=== PATIENT | male | born 1970 | race Caucasian/White ===

== ENCOUNTER → 2016-12-29 | Outpatient (CLI) | payer OTHER | DX: R07.9 Chest pain, unspecified (principal); R07.1 Chest pain on breathing; R05 Cough | CPT/HCPCS: 71101 ==

== ENCOUNTER 2021-04-30 20:56 | Emergency (ER) | payer BC ==
[2021-04-30 22:24] LABS: HEMOGLOBIN 17.2 gm/dl (14.0-17.5); RED BLOOD COUNT 4.92 M/UL (4.20-5.50); WHITE BLOOD COUNT 4.8 K/UL (4.5-11.0)
[2021-04-30] MEDS ORDERED: ATROVENT-HFA12.9 GM INH (23:13)
[2021-04-30] MEDS ORDERED: ZITHROMAX250 MG PO (23:13)
== END 2021-04-30 23:30 | disposition home or self-care (01) ==
LOC: ER1 20:56
PROVIDERS: Physician Assistant Medical
DX: U07.1 COVID-19 (principal); I10 Essential (primary) hypertension; F17.210 Nicotine dependence, cigarettes, uncomplicated
CPT/HCPCS: 71046; 80053; 83605; 85025; 87040; 93005; 99285; U0002

== ENCOUNTER → 2021-04-30 | Outpatient (CLI) | payer BC ==
[~2021-04-30] MED LIST: ATROVENT-HFA12.9 GM INH; COREG 25MG TAB25 MG PO; FENOFIBRATE145 MG PO; HYDROCHLOROTHIA25 MG PO; NORVASC10 MG PO; VITAMIN C500 M4 PO; ZINC30 M1 PO; ZITHROMAX250 MG PO
== END ==
LOC: KOH-I 13:33
DX: R06.00 Dyspnea, unspecified (principal)
CPT/HCPCS: 71046

== ENCOUNTER 2021-05-05 12:45 | Emergency (ER) | payer BC ==
[~2021-05-05] VITALS: Ht 185.4 cm; Wt 131.5 kg
[~2021-05-05 12:45] MED LIST changes: -COREG 25MG TAB25 MG PO; -FENOFIBRATE145 MG PO; -HYDROCHLOROTHIA25 MG PO; -NORVASC10 MG PO; -VITAMIN C500 M4 PO; -ZINC30 M1 PO
[2021-05-05 13:47] LABS: RED BLOOD COUNT 4.88 M/UL (4.20-5.50); WHITE BLOOD COUNT 5.6 K/UL (4.5-11.0)
[2021-05-06] MEDS ORDERED: COREG 25MG TAB25 MG PO (10:22)
[2021-05-06] MEDS ORDERED: NORVASC10 MG PO (10:24)
[2021-05-06] MEDS ORDERED: FENOFIBRATE145 MG PO (10:24)
[2021-05-06] MEDS ORDERED: ZINC30 M1 PO (10:25)
[2021-05-06] MEDS ORDERED: VITAMIN C500 M4 PO (10:26)
[2021-05-06] MEDS ORDERED: HYDROCHLOROTHIA25 MG PO (10:35)
== END 2021-05-05 17:24 | disposition home or self-care (01) ==
LOC: ER1 12:45
PROVIDERS: Physician Assistant Medical
DX: Z23 Encounter for immunization (principal); U07.1 COVID-19; E86.0 Dehydration; I10 Essential (primary) hypertension
CPT/HCPCS: 71045; 80053; 82550; 82553; 83874; 84484; 85025; 85379; Q9967

== ENCOUNTER 2021-05-05 18:02 | Inpatient (IN) | payer BC ==
[~2021-05-05] VITALS: Ht 188 cm; Wt 127.0 kg
[2021-05-06 01:12] LABS: HEMOGLOBIN 16.5 gm/dl (14.0-17.5); RED BLOOD COUNT 4.74 M/UL (4.20-5.50)
[2021-05-06 01:16] LABS: WHITE BLOOD COUNT 8.1 K/UL (4.5-11.0)
[2021-05-06] MEDS ORDERED: COREG 25MG TAB25 MG PO (10:22)
[2021-05-06] MEDS ORDERED: FENOFIBRATE145 MG PO (10:24)
[2021-05-06] MEDS ORDERED: NORVASC10 MG PO (10:24)
[2021-05-06] MEDS ORDERED: ZINC30 M1 PO (10:25)
[2021-05-06] MEDS ORDERED: VITAMIN C500 M4 PO (10:26)
[2021-05-06] MEDS ORDERED: HYDROCHLOROTHIA25 MG PO (10:35)
[2021-05-07 02:45] LABS: RED BLOOD COUNT 4.68 M/UL (4.20-5.50)
[2021-05-07 03:14] LABS: BUN/CREATININE RATIO 13 (0-10)
[2021-05-08 04:05] LABS: HEMOGLOBIN 15.9 gm/dl (14.0-17.5); RED BLOOD COUNT 4.61 M/UL (4.20-5.50)
[2021-05-08 04:27] LABS: WHITE BLOOD COUNT 10.5 K/UL (4.5-11.0)
[2021-05-08 05:29] LABS: BUN/CREATININE RATIO 17 (0-10)
[2021-05-09 03:39] LABS: HEMOGLOBIN 15.2 gm/dl (14.0-17.5); RED BLOOD COUNT 4.64 M/UL (4.20-5.50); WHITE BLOOD COUNT 8.9 K/UL (4.5-11.0)
[2021-05-09 04:06] LABS: BUN/CREATININE RATIO 16 (0-10)
[2021-05-10 08:31] LABS: HEMOGLOBIN 16.2 gm/dl (14.0-17.5); RED BLOOD COUNT 4.78 M/UL (4.20-5.50)
[2021-05-10 08:34] LABS: WHITE BLOOD COUNT 11.9 K/UL (4.5-11.0)
[2021-05-10 09:15] LABS: BUN/CREATININE RATIO 16 (0-10)
[2021-05-11 03:51] LABS: HEMOGLOBIN 15.6 gm/dl (14.0-17.5); RED BLOOD COUNT 4.56 M/UL (4.20-5.50)
[2021-05-11 03:55] LABS: WHITE BLOOD COUNT 15.9 K/UL (4.5-11.0)
[2021-05-11 04:20] LABS: BUN/CREATININE RATIO 20 (0-10)
--- NOTE | 2021-05-11 19:08 | NUR ---
PT UNABLE TO VOID SINCE 0700 AM. ASKED MUTIPLE TIME BUT HE SAID HE DID NOT FEEL THE URGE TO GO. MD NOTIFIED. BLADDER SCANNED. SCAN SHOWED 967ML URINE. 16 FR PEREZ ANCHORED 1400 ML JOSE FRANCISCO URINE VOIDED.
[2021-05-13 04:02] LABS: WHITE BLOOD COUNT 19.5 K/UL (4.5-11.0)
[2021-05-13 04:04] LABS: HEMOGLOBIN 9.8 gm/dl (14.0-17.5); RED BLOOD COUNT 2.89 M/UL (4.20-5.50)
[2021-05-13 04:30] LABS: BUN/CREATININE RATIO 25 (0-10)
[2021-05-14 02:52] LABS: HEMOGLOBIN 9.7 gm/dl (14.0-17.5); RED BLOOD COUNT 2.82 M/UL (4.20-5.50); WHITE BLOOD COUNT 20.6 K/UL (4.5-11.0)
[2021-05-14 03:20] LABS: BUN/CREATININE RATIO 21 (0-10)
[2021-05-15 02:43] LABS: HEMOGLOBIN 9.5 gm/dl (14.0-17.5); RED BLOOD COUNT 2.83 M/UL (4.20-5.50); WHITE BLOOD COUNT 24.4 K/UL (4.5-11.0)
[2021-05-15 03:18] LABS: BUN/CREATININE RATIO 23 (0-10)
--- NOTE | 2021-05-15 10:03 | NUR ---
PATIENTS ROOM AIR SATURATION IS 88%.
== END 2021-05-15 16:43 | disposition home or self-care (01) | DRG 177 ==
LOC: ER1 18:02 → CDU 20:15 → MED SURG 4 20:15 → PROG CARE 20:15 → CCU 20:15 → MED SURG 4 05-06 07:23 → CCU 05-08 15:10 → PROG CARE 05-13 15:39
PROVIDERS: Internal Medicine; Internal Medicine Pulmonary Disease; ADMIT Internal Medicine
PROC: XW033E5 Introduction of Remdesivir Anti-infective into Peripheral Vein, Percutaneous Approach, New Technology Group 5 (ICD-10-PCS; principal; 2021-05-05)
PROC: 3E0333Z Introduction of Anti-inflammatory into Peripheral Vein, Percutaneous Approach (ICD-10-PCS; 2021-05-05)
PROC: 8E0ZXY6 Isolation (ICD-10-PCS; 2021-05-06)
PROC: 5A0945A Assistance with Respiratory Ventilation, 24-96 Consecutive Hours, High Flow/Velocity Cannula (ICD-10-PCS; 2021-05-07)
PROC: XW13325 Transfusion of Convalescent Plasma (Nonautologous) into Peripheral Vein, Percutaneous Approach, New Technology Group 5 (ICD-10-PCS; 2021-05-07)
DX: U07.1 COVID-19 (principal); J12.82 Pneumonia due to coronavirus disease 2019; J80 Acute respiratory distress syndrome; N17.9 Acute kidney failure, unspecified; E83.39 Other disorders of phosphorus metabolism; E87.6 Hypokalemia; I10 Essential (primary) hypertension; E78.5 Hyperlipidemia, unspecified; E66.9 Obesity, unspecified; F17.210 Nicotine dependence, cigarettes, uncomplicated; R79.89 Other specified abnormal findings of blood chemistry; D64.9 Anemia, unspecified; M79.81 Nontraumatic hematoma of soft tissue; T45.515A Adverse effect of anticoagulants, initial encounter; Z96.651 Presence of right artificial knee joint; F10.10 Alcohol abuse, uncomplicated; Z83.3 Family history of diabetes mellitus; Z68.35 Body mass index [BMI] 35.0-35.9, adult
CPT/HCPCS: 36415; 36600; 71045; 80048; 80053; 80061; 82550; 82553; 82728; 82803; 83036; 83605; 83615; 83735; 83874; 83880; 84100; 84484; 85025; 85027; 85379; 86140; 86900; 86901; 86927; 87040; 93005; 94640; 94660; 94664; 94760; 96374; 99284; 99285; C9113; J1100; J1205; J1650; J2270; J7030; J7040; J7050; M0243; Q9967

== ENCOUNTER 2021-05-15 19:51 | Emergency (ER) | payer BC ==
[~2021-05-15 19:51] MED LIST changes: +COREG 25MG TAB25 MG PO; +FENOFIBRATE145 MG PO; +HYDROCHLOROTHIA25 MG PO; +NORVASC10 MG PO; +VITAMIN C500 M4 PO; +ZINC30 M1 PO
[2021-05-15 20:47] LABS: HEMOGLOBIN 11.3 gm/dl (14.0-17.5)
[2021-05-15 20:49] LABS: BUN/CREATININE RATIO 22 (0-10)
[2021-05-15 21:13] LABS: RED BLOOD COUNT 3.32 M/UL (4.20-5.50); WHITE BLOOD COUNT 35.1 K/UL (4.5-11.0)
== END 2021-05-16 03:00 | disposition home or self-care (01) ==
LOC: ER1 19:51
PROVIDERS: Emergency Medicine
DX: U07.1 COVID-19 (principal); J12.82 Pneumonia due to coronavirus disease 2019; I26.99 Other pulmonary embolism without acute cor pulmonale; J96.91 Respiratory failure, unspecified with hypoxia; I10 Essential (primary) hypertension
CPT/HCPCS: 36600; 71045; 80053; 82550; 82553; 82803; 83874; 84484; 85025; 93005; 94760; 99285

== ENCOUNTER → 2022-02-12 | Outpatient (CLI) | payer BC | LOC: KOH-I 14:06 | DX: R05.9 Cough, unspecified (principal); U09.9 Post COVID-19 condition, unspecified; R91.8 Other nonspecific abnormal finding of lung field | CPT/HCPCS: 71046 ==

== ENCOUNTER → 2022-07-03 | Outpatient (CLI) | payer OTHER | LOC: CT 08:21 | DX: K42.9 Umbilical hernia without obstruction or gangrene (principal) | CPT/HCPCS: 74150 ==